=== PATIENT | male | born 1995 | race Caucasian/White ===

== ENCOUNTER → 2020-01-08 11:03 | Outpatient (BNVA) | payer SELFPAY | PROVIDERS: Family Provider Family Medicine; PCP Family Medicine; Visit Provider Nurse Practitioner Family | DX: M79.641 Pain in right hand (principal); S62.624A Displaced fracture of middle phalanx of right ring finger, initial encounter for closed fracture; X58.XXXA Exposure to other specified factors, initial encounter | CPT/HCPCS: 73130 ==

== ENCOUNTER → 2023-08-07 12:52 | Outpatient (BNVA) | payer SELFPAY | PROVIDERS: Family Provider Family Medicine; PCP Family Medicine; Visit Provider Emergency Medicine | DX: J02.9 Acute pharyngitis, unspecified (principal) | CPT/HCPCS: 87880 ==